=== PATIENT | female | born 1985 | race Caucasian/White ===

== ENCOUNTER 2019-09-09 10:54 | Outpatient (CLI) | payer OTHER ==
--- NOTE | 2019-09-09 11:22 | RAD ---
LUMBAR SPINE TWO VIEWS: HISTORY: Disability exam. FINDINGS: No fracture, subluxation or bony destruction is identified. No significant degenerative changes are s een. An IUD is present. POS: TPC
== END 2019-09-09 10:55 | disposition home or self-care (01) ==
LOC: BICRAD 10:54
PROVIDERS: ATTEND Internal Medicine
DX: Z02.71 Encounter for disability determination (principal); Z97.5 Presence of (intrauterine) contraceptive device
CPT/HCPCS: 72100

== ENCOUNTER 2020-03-10 01:23 | Inpatient (IN) | payer SELFPAY ==
[2020-03-10] MEDS ORDERED: Fentanyl 100 MCG/2 ML VIAL SLOW IVP PRN ×2 (02:52→13:42)
[2020-03-10 03:24] VITALS: BMI 31.4
[2020-03-10] MEDS: cefTRIAXone\\ROCEPHIN 2 GM in Sodium Chloride 0.9% 100 ML IVPB SCH (03:46)
[2020-03-10] MEDS: D5 1/2 NS w/20 mEq KCL 1,000 ML IV SCH ×4 (03:46→23:57)
[2020-03-10] MEDS: metroNIDAZOLE 500 MG in Premix Bag 1 BAG IVPB SCH ×3 (05:03→19:32)
[2020-03-10] MEDS ORDERED: Ondansetron PF 4 MG/2 ML Vial IVP SCH (06:15)
[2020-03-10] MEDS: Saccharomyces boulardii 250 MG CAP PO SCH (08:05)
[2020-03-10 09:39] LABS: #Lymphocytes 1.1 thou/uL (1.20-3.40); #Monocytes 0.4 thou/uL (0.11-0.59); #Neutrophils 6.7 thou/uL (1.40-6.50); %Basophils 0.2 % (0.0-1.0); %Eosinophils 0.3 % (0.0-10.0); %Lymphocytes 13.5 % (21.0-51.0); %Monocytes 4.4 % (0.0-10.0); %Neutrophils 81.6 % (42.0-75.0); Hemoglobin 13.9 g/dL (12.0-16.0); Mean Corpuscular HGB CONC 33.4 g/dL (32.0-36.0); Mean Platelet Volume 10.1 fL (7.4-10.4); Platelet Count 130 thou/uL (130-400); RBC Distribution Width 11.9 % (11.5-14.5); Red Blood Cell (RBC) Count 4.35 mill/uL (4.20-5.40); White Blood Cell (WBC) Count 8.2 thou/uL (4.8-10.8)
[2020-03-10 09:57] LABS: Anion Gap 11 mmol/L (10-20); BUN (Urea Nitrogen) 6 mg/dL (7.0-18.7); Calc. Creatinine Clearance 164 mL/min (70-130); Calcium 8.8 mg/dL (7.8-10.44); Carbon Dioxide 26 mmol/L (22-29); Chloride 106 mmol/L (98-107); Estimated GFR-MDRD Greater than 90; Glucose 98 mg/dL (70-105); Potassium 3.4 mmol/L (3.5-5.1); Sodium 140 mmol/L (136-145)
[2020-03-10] MEDS: traMADol HCl 50 MG TAB PO PRN (13:52)
--- NOTE | 2020-03-10 15:01 | HP ---
REASON FOR ADMISSION: Acute colitis. HISTORY OF PRESENTING ILLNESS: The patient gives history of having abdominal pain and nauseous feeling for the last 1 week or so now. She also developed diarrhea on the hour, which was watery from yesterday. The patient got exhausted and also developed a temperature of 102 degrees with chills and headache and finally made it to [facility] Emergency Room. From there, she was transferred here after a CAT scan shows findings of colitis. The patient states she has history of gastroparesis and for her to have nauseous feeling was common, but not the other symptoms. She has had gastric emptying study done in January of 2019 and was found to have had gastroparesis and was placed on Reglan and Zofran p.r.n. PAST MEDICAL AND SURGICAL HISTORY: History of gastroparesis and has seen Dr. Chawla at [facility]. Last upper endoscopy in 2018. She has had a prior colonoscopy done in 2013. GERD, gastritis, depression, bipolar disorder, PTSD. CURRENT MEDICATIONS: The patient is not taking any medications for the last 2 weeks now. She was supposed to be on, 1. Seroquel. 2. Topiramate. 3. Citalopram. 4. Mirtazapine. 5. Lamotrigine. 6. Gabapentin, all of which she is waiting on a prescription when she sees Barby Galeas on March 31. She is also on lisinopril and sucralfate along with Reglan and Zofran p.r.n. ALLERGIES: TO MORPHINE, LITHIUM, PENICILLIN, MIRALAX, ULTRAM, ZIPRASIDONE. PERSONAL HISTORY: Quit smoking 8 months ago. Does not abuse alcohol or drugs. FAMILY HISTORY: Mother is living, has some disk issues in the lower back. She also has diabetes. Father in his 70s. He had a portion of his stomach removed, had skin cancer, diabetes, and dementia. The power of forensic science technician is her . CODE STATUS: Full. REVIEW OF SYSTEMS: CONSTITUTIONAL: Negative for weight loss or gain, ability to conduct usual activities. SKIN: Negative for rash, itching. EYES: Negative for double vision, pain. ENT/MOUTH: Negative for nose bleeding, neck stiffness, pain, tenderness. CARDIOVASCULAR: Negative for palpitations, dyspnea on exertion, orthopnea. RESPIRATORY: Negative for shortness of breath, wheezing, cough, hemoptysis, fever or night sweats. GASTROINTESTINAL: Negative for poor appetite, abdominal pain, heartburn, nausea, vomiting, constipation, or diarrhea. GENITOURINARY: Negative for urgency, frequency, dysuria, nocturia. MUSCULOSKELETAL: Negative for pain, swelling. NEUROLOGIC/PSYCHIATRIC: Negative for anxiety, depression. ALLERGY/IMMUNOLOGIC: Negative for skin rash, bleeding tendency. PHYSICAL EXAMINATION: GENERAL: The patient is a 34-year-old female who is currently not in any acute distress. VITAL SIGNS: Blood pressure 124/86, temperature 99.8 degrees Fahrenheit, saturating 98% on room air, respiratory rate 16, pulse is 76 per minute. NECK: Supple. No elevated JVD. HEENT: Eyes; extraocular muscles intact. Pupils reacting to light. Oral cavity, mucous membranes are moist. No exudates or congestion. CARDIOVASCULAR: S1 and S2 heard, regular rhythm. RESPIRATORY: Air entry 1+ bilateral. No rales or rhonchi. ABDOMEN: Soft. Bowel sounds heard. No tenderness, rigidity, or guarding. EXTREMITIES: No peripheral edema or calf tenderness. VASCULAR: Peripheral pulses 1+ bilateral. No ischemic ulcerations or gangrene. CENTRAL NERVOUS SYSTEM: No gross focal deficits noted. The patient is alert, awake, oriented well. PSYCHIATRIC: The patient's mood is euthymic. No hallucinations or delusions. LABORATORY AND DIAGNOSTIC DATA: The patient has had a CT of the abdomen and pelvis done with contrast on 03/08/2020, which showed findings of mild hyperenhancement in the ascending colonic mucosa with low-grade colitis, slight interval size decrease in left renal angiomyolipomas with embolization changes. Normal appendix. White count of 13, H and H 15 and 46, platelet count 157 with 89% neutrophils. Potassium 3.2, serum bicarb 21, BUN 10, creatinine 0.7, serum glucose 143. Liver enzymes within normal limits. CRP 1.20. Albumin is 4.8. Liver enzymes are within normal limits. UA is negative for any infection. Urine test is negative. Stool for C difficile is negative. Campylobacter antigen is positive. Shiga toxin is negative. Chest x-ray done shows no acute cardiopulmonary abnormalities. CLINICAL IMPRESSION AND PLAN: The patient will be admitted to medical floor for acute colitis. Her stool is positive for Campylobacter antigen. The patient is on Flagyl and ceftriaxone for now. We will also gently hydrate her with D5 half NS with 20 mEq of potassium at 125 mL per hour. We will obtain gastroenterology consultation with Dr. Aguayo. She will be on clear liquid diet until she is able to tolerate it and we will slowly advance her diet. She is otherwise hemodynamically stable for now. Job ID: [id number]
[2020-03-10] MEDS: Ondansetron ODT 4 MG TAB PO PRN (17:59)
[2020-03-10] MEDS ORDERED: Promethazine HCl 25 MG/ML VIAL IM/IV SCH (19:30)
[2020-03-11] MEDS: cefTRIAXone\\ROCEPHIN 2 GM in Sodium Chloride 0.9% 100 ML IVPB SCH (02:30)
[2020-03-11] MEDS: metroNIDAZOLE 500 MG in Premix Bag 1 BAG IVPB SCH ×2 (03:06→11:10)
[2020-03-11] MEDS: traMADol HCl 50 MG TAB PO PRN ×3 (05:50→23:01)
[2020-03-11 05:55] LABS: #Lymphocytes 1.7 thou/uL (1.20-3.40); #Monocytes 0.4 thou/uL (0.11-0.59); #Neutrophils 2.9 thou/uL (1.40-6.50); %Basophils 0.6 % (0.0-1.0); %Eosinophils 0.4 % (0.0-10.0); %Monocytes 7.6 % (0.0-10.0); %Neutrophils 58.5 % (42.0-75.0); Hemoglobin 13.5 g/dL (12.0-16.0); Mean Corpuscular HGB CONC 33.2 g/dL (32.0-36.0); Mean Corpuscular Volume 96.4 fL (78.0-98.0); Mean Platelet Volume 10.3 fL (7.4-10.4); Platelet Count 128 thou/uL (130-400); Red Blood Cell (RBC) Count 4.21 mill/uL (4.20-5.40)
[2020-03-11 06:03] LABS: Anion Gap 6 mmol/L (10-20); BUN (Urea Nitrogen) 4 mg/dL (7.0-18.7); Calc. Creatinine Clearance 150 mL/min (70-130); Calcium 8.9 mg/dL (7.8-10.44); Carbon Dioxide 31 mmol/L (22-29); Chloride 106 mmol/L (98-107); Estimated GFR-MDRD 82; Glucose 113 mg/dL (70-105); Potassium 3.3 mmol/L (3.5-5.1); Sodium 140 mmol/L (136-145)
[2020-03-11] MEDS: Saccharomyces boulardii 250 MG CAP PO SCH (08:16)
--- NOTE | 2020-03-11 08:59 | CON ---
DATE OF CONSULTATION: 03/10/2020 REASON FOR CONSULTATION: Abdominal pain, nausea, vomiting, diarrhea. HISTORY OF PRESENT ILLNESS: Ms. Regi Falk is a very pleasant 34-year-old female, hospitalized with abdominal pain, diarrhea, and also some fever. The patient is actually feeling better today. As per the patient, she had fever of 102 yesterday and came to the ER, but today her temperature 99.1 to 99.8 degrees Fahrenheit. Her abdominal pain is markedly improved. She has had no nausea, vomiting today. Her diarrhea is actually getting better. She had 3 stools and stools are watery. There is no bleeding in the stool. The patient is actually feeling better today and overall she feels better. The patient appears to have chronic GI symptoms over the years. It appears she has had abdominal cramping, diarrhea over the years and it appears she has IBS. Apparently, she had seen Dr. Scott Ramirez in 2013 and had a colonoscopy, EGD and both were negative. She saw Dr. Ramirez for quite a while and then she saw Dr. Steward at [facility]. He did an EGD ulcer disesae, esophagitis, hiatal hernia, and also gastroparesis. She was placed on Zofran and Reglan subsequently. She has been on Reglan and Zofran off and on. At times Reglan helps her, but at times it does not really help her. The patient has had chronic GI symptoms over the years and appears to be more of IBS diarrhea. The patient has had no hematochezia . The patient has had intermittent abdominal pain, abdominal bloating, belching, flatulence and diarrhea over the years. Her symptoms this time started approximately a week ago, or last . She went to the [facility] on Sunday and had abdominal CAT scan. The CAT scan showed some colitis. She was sent home on some antibiotics. The patient also developed a fever of 102 yesterday with some chills and worsening diarrhea, so she came back to the ER and got admitted to hospital here. The stool studies are pending. The patient had no relevant history. ALLERGIES: MULTIPLE AND INCLUDING ALLANTOIN, BENZOCAINE, BENZALKONIUM CHLORIDE, MORPHINE, LITHIUM, PENICILLIN, MIRALAX, ULTRAM, ETC. SOCIAL HISTORY: She is a chronic smoker. She has smoked for 22 years and she quit smoking last year. She was smoking a packet of cigarettes per day. She seldom drinks alcohol. PAST MEDICAL HISTORY: 1. Obesity. She used to weigh 285 pounds. She lost about nearly 80 pounds over the last 6 or 7 months. 2. Hiatal hernia. 3. Chronic acid reflux, epigastric ulcer, ulcer gastritis. 4. Depression. 5. PTSD. 6. Bipolar disorder. 7. History of peripheral neuropathy and had seen in the past. 8. Gastroparesis. PAST SURGICAL HISTORY: 1. Bilateral carpal tunnel syndrome release. 2. History of angiomyolipoma of the kidneys and has had an embolization done at [facility] in 2019. MENSTRUAL HISTORY: No periods for the last 7 years and she has had a Mirena implant done in the past. MEDICATIONS: 1. Verapamil. 2. Seroquel. 3. Topiramate. 4. Citalopram. 5. Mirtazapine. 6. Lamotrigine. 7. Gabapentin. 8. Reglan. 9. Zofran. FAMILY HISTORY: Mother, diabetes mellitus, hypertension. Father at the 70s and he had skin cancer, diabetes, dementia, and also prostate cancer. He also had his total stomach removed. SOCIAL HISTORY: She is unemployed. 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 She had two children and both children have autism. REVIEW OF SYSTEMS: Ten-point system reviewed. CONSTITUTIONAL: History of weight loss of nearly 100 pounds over the last 7 or 8 months. Subsequently kidney for angiomyolipoma. History of recent fever. No history of any change in exercise tolerance. HEENT: Head, no chronic headache. No syncope. Eyes, no diplopia. No impaired vision. Ears, no hearing loss. Nose, no nosebleed. Throat, no sore throat. At times, she feels her throat is closing, which occurs off and on. LUNGS: No chronic coughing, hemoptysis. CARDIOVASCULAR: No chest pain. No palpitation. No dyspnea, orthopnea, PND. GI: As in history of present illness. : No dysuria, hematuria. MUSCULOSKELETAL: History of peripheral neuropathy and has some poor coordination of the upper extremities. NEUROPSYCHIATRIC: History of depression, bipolar disorder, PTSD. PHYSICAL EXAMINATION: GENERAL: She appears very comfortable, in no acute distress. She is actually feeling better. VITAL SIGNS: Temperature 99.8 degrees Fahrenheit, pulse 77, blood pressure 124/86. HEENT: Conjunctivae are clear. NECK: Supple. CARDIOVASCULAR: First and second heart sounds normal. LUNGS: Clear to auscultation. ABDOMEN: Very benign. Abdomen is mildly tender over the epigastric area. Overall, it is nontender anywhere else. There is no rebound or guarding. Bowel sounds are normal. EXTREMITIES: Reveal no edema. LABORATORY DATA: CBC; WBC 8200, hemoglobin 13.9, hematocrit 41.7, MCV 96, platelet count is 130,000, polymorphs 81, lymphocytes 13, monocytes 4. Chemistry panel, potassium 3.4, otherwise Chem-7 is normal. Calcium 8.8. CLINICAL IMPRESSION: 1. A 34-year-old female with chronic gastrointestinal symptoms over the years. She appears to have what appears to be classical irritable bowel syndrome diarrhea over the years. She had a colonoscopy by Dr. Ramirez in 2013 was negative. She was told to have gastroparesis a year ago by Dr. Steward. She was placed on Reglan and Zofran. [id number] diarrhea, which is most likely infectious in origin. She has no symptoms of inflammatory bowel disease. 2. Obesity. 3. History of gastric ulcer. 4. Hiatal hernia. 5. Chronic acid reflux. 6. 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 7. Depression. 8. Bipolar disorder. 9. Post-traumatic stress disorder. 10. Peripheral neuropathy. RECOMMENDATION: Clear liquid diet. Await stool culture and other studies. If she has no worsening of symptoms, continue regular diet from tomorrow. I do not believe she needs a colonoscopy at the present time, her symptoms are most likely IBS diarrhea on top of infectious diarrhea. Job ID: [id number]
[2020-03-11] MEDS: D5 1/2 NS w/20 mEq KCL 1,000 ML IV SCH ×2 (10:00→12:42)
[2020-03-11] MEDS: Ondansetron ODT 4 MG TAB PO PRN ×2 (11:10→23:02)
--- NOTE | 2020-03-11 12:07 | PDOC.HOSPP ---
- Subjective Encounter Date: 03/11/20 Encounter Time: 08:50 Subjective: abd pain and nausea has resolved is tolerating liq diet ambulating in room, no sob - Objective Vital Signs & Weight: Vital Signs (12 hours) Temp Pulse Resp BP Pulse Ox 03/11/20 08:16 96 03/11/20 07:43 98.6 F 68 17 127/82 96 Weight Admit Weight 212 lb Weight 212 lb 14.4 oz I&O: 03/10/20 03/11/20 03/12/20 06:59 06:59 06:59 Intake Total 400 2730 Output Total 350 Balance 400 2380 Result Diagrams: 03/11/20 05:31 03/11/20 05:31 Hospitalist ROS - Medication Medications: Active Medications Generic Name Dose Route Start Last Admin Trade Name Freq PRN Reason Stop Dose Admin Fentanyl 25 mcg 03/10/20 13:42 03/10/20 18:04 Sublimaze SLOW IVP 25 mcg Q6H PRN Administration Severe Pain (7-10) Potassium Chloride/Dextrose/Sod Cl 1,000 mls @ 125 mls/hr 03/10/20 03:00 10:00 D5 1/2 Ns W/20 Meq Kcl IV 1,000 mls .Q8H HEBER Administration Metronidazole 500 mg/ Device 100 mls @ 100 mls/hr 03/10/20 04:00 03/11/20 11: 10 IVPB 100 mls 0400,1200,2000 HEBER Administration Ondansetron HCl 4 mg 03/10/20 17:56 03/11/20 11:10 Zofran Odt PO 4 mg Q6H PRN Administration Nausea/Vomiting Saccharomyces Boulardii 250 mg 03/10/20 09:00 03/11/20 08:16 Florastor PO 250 mg DAILY HEBER Administration Sodium Chloride 10 ml 03/10/20 09:00 03/11/20 08:16 Flush - Normal Saline IVF Not Given Q12HR HEBER Tramadol HCl 50 mg 03/10/20 13:42 03/11/20 05:50 Ultram PO 50 mg Q6H PRN Administration Mild-Moderate Pain (1-6) - Exam General Appearance: awake alert Eye: PERRL, anicteric sclera ENT: no oropharyngeal lesions, moist mucosa Neck: supple, no JVD Heart: RRR, no murmur Respiratory: no wheezes, no rales Gastrointestinal: soft, non-tender, non-distended, normal bowel sounds, no guarding, no rigidity Extremities: no cyanosis, no edema Neurological: cranial nerve grossly intact, no focal deficits Psychiatric: A&O x 3 Hosp A/P (1) Gastroenteritis/colitis, infectious Code(s): A09 - INFECTIOUS GASTROENTERITIS AND COLITIS, UNSPECIFIED Status: Acute (2) IBS (irritable bowel syndrome) Status: Chronic Qualifiers: Irritable bowel syndrome type: with diarrhea Qualified Code(s): K58.0 - Irritable bowel syndrome with diarrhea (3) Obesity (BMI 30.0-34.9) Code(s): E66.9 - OBESITY, UNSPECIFIED Status: Chronic (4) Bipolar disorder Code(s): F31.9 - BIPOLAR DISORDER, UNSPECIFIED Status: Chronic Qualifiers: Active/Remission status: in full remission (5) Depression Code(s): F32.9 - MAJOR DEPRESSIVE DISORDER, SINGLE EPISODE, UNSPECIFIED Status : Chronic Qualifiers: Depression Type: major depressive disorder (6) Gastroparesis Code(s): K31.84 - GASTROPARESIS Status: Chronic - Plan campylobacter jejuni Ag in stool is +ve, unclear if its the source of current colitis, will give 3 doses of levaquin hemostable is allergic to ?potassium, encourage oral potassium rich food with less fiber ( may ask dietitician to help if needed) dc plan in am advance to oral solid diet appreciate help from
[2020-03-11] MEDS ORDERED: metroNIDAZOLE 500 MG TAB PO SCH (15:00)
--- NOTE | 2020-03-11 15:17 | PRG ---
DATE OF SERVICE: 03/11/2020 SUBJECTIVE: A 34-year-old , hospitalized with abdominal pain, fever, nausea, vomiting, and diarrhea. Symptoms markedly improved. Feeling a whole lot better today. She has abdominal pain, but does have nausea off and on. The stool frequency markedly came down. She is acting a whole lot better, actually she would like to go home today. The stool studies are negative for C difficile toxin and antigen. However, she has positive Campylobacter antigen. PHYSICAL EXAMINATION: GENERAL: She appears very comfortable. VITAL SIGNS: She is afebrile. Her vital signs are stable. HEENT: Conjunctivae are clear. CARDIOVASCULAR: First and second heart sounds heard. LUNGS: Clear to auscultation. ABDOMEN: Soft. . IMPRESSION: Acute diarrheal illness . She also has chronic diarrhea from IBS. From GI standpoint, she can be discharged to home on Zithromax. Can also try the regular diet today to make sure she can hold food down. Job ID: [id number]
[2020-03-11] MEDS: metroNIDAZOLE 500 MG TAB PO SCH (20:37)
[2020-03-12] MEDS: D5 1/2 NS w/20 mEq KCL 1,000 ML IV SCH (03:38)
[2020-03-12] MEDS: traMADol HCl 50 MG TAB PO PRN (06:07)
[2020-03-12] MEDS: Ondansetron ODT 4 MG TAB PO PRN (06:07)
[2020-03-12 07:34] VITALS: BP 135/96; TEMP 98.1
[2020-03-12] MEDS: metroNIDAZOLE 500 MG TAB PO SCH (09:50)
[2020-03-12] MEDS: Saccharomyces boulardii 250 MG CAP PO SCH (09:50)
--- NOTE | 2020-03-12 13:22 | DIS ---
DATE OF ADMISSION: 03/10/2020 DATE OF DISCHARGE: 03/12/2020 DISCHARGE DISPOSITION: To home. PRIMARY DISCHARGE DIAGNOSES: 1. Colitis, likely secondary to Campylobacter jejuni, resolved. 2. History of irritable bowel syndrome. 3. Obesity. 4. Bipolar disorder. 5. Depression. 6. History of gastroparesis. PROCEDURES DONE DURING HOSPITALIZATION: Stool for C diff was negative. Blood cultures x2 negative. Influenza A and B antigens were negative. Campylobacter antigen was positive on the stool assay. Stool was negative for shiga toxin 1 and 2. Had a white count of 13 on the day of admission with discharge numbers of 5, H and H 13 and 40, platelet count 128, with 58% neutrophils. BUN 4, creatinine 0.6, serum bicarb is 31. CRP 1.20. Albumin 4.8. Urine test was negative. DISCHARGE MEDICATIONS: 1. Albuterol nebulizer q.6 hourly p.r.n. 2. Norvasc 5 mg p.o. daily. 3. Celexa 40 mg p.o. at bedtime. 4. Gabapentin 300 mg p.o. 3 times daily. 5. Lamotrigine 25 mg p.o. at bedtime. 6. Mirtazapine 7.5 mg p.o. at bedtime. 7. Omeprazole 40 mg twice daily. 8. Zofran p.r.n. 9. Levaquin 750 mg p.o. one more dose tomorrow. ALLERGIES: THE PATIENT IS ALLERGIC TO MULTIPLE AGENTS INCLUDING ORAJEL, KETORALAC, LITHIUM, MORPHINE, NSAIDS, MIRALAX, POTASSIUM, SODIUM BICARBONATE, ZINC, AND ADHESIVES. DISCHARGE PLAN: The patient to follow up with her primary care physician, Dr. Jori Rios, in 1 week. BRIEF COURSE DURING HOSPITALIZATION: The patient initially came in with complaints of abdominal pain with diarrhea and nausea. The patient has had a CAT scan done, which showed findings of colitis. She was essentially placed on full liquid diet and stool studies were done along with broad-spectrum IV antibiotics. The patient has responded to above measures. Her stool came back positive for Campylobacter antigen. She was slowly weaned into solid food at the time of discharge. Her diarrhea has resolved. She is tolerating oral solid diet. The patient has known history of irritable bowel syndrome. She is ambulating in the hallway. She will be shortly discharged home. Please note, I have seen and examined the patient on the day of discharge. Job ID: [id number]
== END 2020-03-12 10:43 | disposition home or self-care (01) | DRG 373 ==
LOC: T4-B 02:49
PROVIDERS: ADMIT Internal Medicine; ATTEND Internal Medicine
DX: A04.5 Campylobacter enteritis (principal); K21.9 Gastro-esophageal reflux disease without esophagitis; F31.9 Bipolar disorder, unspecified; F43.10 Post-traumatic stress disorder, unspecified; G62.9 Polyneuropathy, unspecified; K44.9 Diaphragmatic hernia without obstruction or gangrene; E66.9 Obesity, unspecified; Z88.0 Allergy status to penicillin; Z88.6 Allergy status to analgesic agent; Z88.8 Allergy status to other drugs, medicaments and biological substances; Z87.891 Personal history of nicotine dependence; Z68.31 Body mass index [BMI] 31.0-31.9, adult; Z87.19 Personal history of other diseases of the digestive system
CPT/HCPCS: 36415; 80048; 85025; 87045; 87046; 87324; 87427; 87449; J0696; J2405; J2550; J3010; J3480; J3490; Q0162

== ENCOUNTER 2021-11-15 15:25 | Emergency (ER) | payer MEDICARE ==
[2021-11-15 15:56] LABS: #Eosinphils 0.1 thou/uL (0.0-0.7); #Lymphocytes 1.6 thou/uL (1.20-3.40); #Monocytes 0.2 thou/uL (0.11-0.59); #Neutrophils 3.9 thou/uL (1.40-6.50); %Basophils 0.4 % (0.0-1.0); %Eosinophils 2.1 % (0.0-10.0); %Monocytes 4.1 % (0.0-10.0); %Neutrophils 66.5 % (42.0-75.0); Hemoglobin 13.4 g/dL (12.0-16.0); Mean Corpuscular HGB CONC 35.4 g/dL (32.0-36.0); Mean Corpuscular Hemoglobin 33.8 pg (27.0-31.0); Mean Corpuscular Volume 95.3 fL (78.0-98.0); Mean Platelet Volume 8.3 fL (7.4-10.4); Platelet Count 198 thou/uL (130-400); RBC Distribution Width 11.1 % (11.5-14.5); Red Blood Cell (RBC) Count 3.98 mill/uL (4.20-5.40); White Blood Cell (WBC) Count 5.9 thou/uL (4.8-10.8)
[2021-11-15 16:20] LABS: ALT (SGPT) 11 U/L (8-55); AST (SGOT) 15 U/L (5-34); Albumin 4.1 g/dL (3.5-5.0); Alkaline Phosphatase 64 U/L (40-110); Anion Gap 12 mmol/L (10-20); BUN (Urea Nitrogen) 15 mg/dL (7.0-18.7); Bilirubin, Total 0.4 mg/dL (0.2-1.2); Calc. Creatinine Clearance 0 mL/min (70-130); Calcium 8.9 mg/dL (7.8-10.44); Carbon Dioxide 27 mmol/L (22-29); Chloride 103 mmol/L (98-107); Globulin 2.4 g/dL (2.4-3.5); Glucose 120 mg/dL (70-105); Potassium 3.8 mmol/L (3.5-5.1); Protein, Total 6.5 g/dL (6.0-8.3); Sodium 138 mmol/L (136-145)
[2021-11-15 19:26] LABS: BHCG - Serum Negative (NEGATIVE); Pregs Control Background? CLEAR/WHITE (CLR/WHITE); Pregs Control Bar Appear? YES (CONTROL BAR)
== END 2021-11-15 20:46 | disposition home or self-care (01) ==
LOC: ERS 15:25
DX: U07.1 COVID-19 (principal); M79.601 Pain in right arm; I10 Essential (primary) hypertension; K21.9 Gastro-esophageal reflux disease without esophagitis; Z87.891 Personal history of nicotine dependence
CPT/HCPCS: 36415; 71045; 71275; 80053; 83880; 84484; 84703; 85025; 85379; 93005

== ENCOUNTER 2024-08-24 10:36 | Emergency (ER) | payer MEDICARE ==
[~2024-08-24 10:36] MED LIST: Iopamidol-370 76% 500 ML MDV (1 ML CHARGE) ONE
[2024-08-24 11:27] LABS: Bacteria/HPF None Seen HPF (None Seen); Bilirubin Negative (Negative); Blood, Urine Negative (Negative); CAUTI Indications for Culture Pelvic or flank pain; Clarity Clear (Clear); Glucose, Urine (Dipstick) Normal (Negative); Ketone, Urine Negative (Negative); Leukocyte Negative Leu/uL (Negative); Nitrite Negative (Negative); Pregnancy Test - Urine (BHCG) Negative (Negative); Pregu Control Background? CLEAR/WHITE (CLR/WHITE); Pregu Control Bar Appear? YES (CONTROL BAR); Protein, Urine (Dipstick) Negative (Neg-Trace); RBC/HPF 0-3 HPF (0-3); Specific Gravity 1.001 (1.002-1.036); Specific Gravity, Urine 1.001 (1.002-1.036); Squamous Epithelial 0-3 HPF (0-3); Urobilinogen Normal mg/dL (Less than 2); WBC/HPF None Seen HPF (0-3); pH, Urine 7.5 (5.0-9.0)
[2024-08-24 11:29] LABS: Urine Culture Reflex No No
[2024-08-24] MEDS ORDERED: fentaNYL 50 mcg/mL 1 mL Vial ONE (12:01)
[2024-08-24] MEDS ORDERED: Ondansetron PF 4 MG/2 ML Vial ONE (12:01)
[2024-08-24 12:03] LABS: #Basophils 0.05 10x3/uL (0.0-0.2); %Basophils 0.6 % (0.0-1.0); %Eosinophils 1.5 % (0.0-10.0); %Lymphocytes 22.8 % (21.0-51.0); %Monocytes 5.6 % (0.0-10.0); %Neutrophils 69.1 % (42.0-75.0); Hematocrit 44.7 % (36.0-47.0); Hemoglobin 14.9 g/dL (12.0-16.0); Mean Corpuscular HGB CONC 33.3 g/dL (32.0-36.0); Mean Corpuscular Hemoglobin 31.2 pg (27.0-31.0); Mean Corpuscular Volume 93.7 fL (78.0-98.0); Mean Platelet Volume 11.4 fL (7.4-10.4); Platelet Count 219 10x3/uL (130-400); Red Blood Cell (RBC) Count 4.77 mill/uL (4.20-5.40)
[2024-08-24 12:18] LABS: BHCG - Serum Negative (NEGATIVE); Pregs Control Background? CLEAR/WHITE (CLR/WHITE); Pregs Control Bar Appear? YES (CONTROL BAR)
[2024-08-24 12:22] LABS: ALT (SGPT) 12 U/L (8-55); AST (SGOT) 13 U/L (5-34); Albumin 4.7 g/dL (3.5-5.0); Alkaline Phosphatase 63 U/L (40-110); Anion Gap 12 mmol/L (10-20); BUN (Urea Nitrogen) 9 mg/dL (7.0-18.7); Bilirubin, Total 0.5 mg/dL (0.2-1.2); Calc. Creatinine Clearance 0 mL/min (70-130); Calcium 10.3 mg/dL (7.8-10.44); Carbon Dioxide 26 mmol/L (22-29); Chloride 104 mmol/L (98-107); Estimated GFR 90; Globulin 3.1 g/dL (2.4-3.5); Glucose 105 mg/dL (70-105); Lipase 30 U/L (8-78); Potassium 3.8 mmol/L (3.5-5.1); Protein, Total 7.8 g/dL (6.0-8.3); Sodium 138 mmol/L (136-145)
[2024-08-24 12:27] LABS: Troponin I Less than 0.010 ng/mL (< 0.028)
== END 2024-08-24 14:01 | disposition home or self-care (01) ==
LOC: ERS 10:36
DX: D17.9 Benign lipomatous neoplasm, unspecified (principal); Z55.9 Problems related to education and literacy, unspecified; Z87.891 Personal history of nicotine dependence
CPT/HCPCS: 74177; 80053; 81001; 81025; 83605; 83690; 84484; 84703; 85025; 93005; 96374; 96375; 99284; J2405; J3010; Q9967; 36415

== ENCOUNTER 2024-12-25 13:11 | Outpatient (CLI) | payer OTHER | END 2024-12-25 13:12 | disposition home or self-care (01) | LOC: BICRAD 13:11 | PROVIDERS: ATTEND Nurse Practitioner Family | DX: M54.2 Cervicalgia (principal); M47.812 Spondylosis without myelopathy or radiculopathy, cervical region | CPT/HCPCS: 72040 ==

== ENCOUNTER 2025-06-15 14:29 | Emergency (ER) | payer OTHER ==
[2025-06-15] MEDS ORDERED: Dexamethasone 10 MG/ML VIAL ONE (16:50)
[2025-06-15] MEDS ORDERED: HYDROcodone/Acetaminophen 10/325 mg Tablet ONE (16:59)
== END 2025-06-15 17:46 | disposition home or self-care (01) ==
LOC: ERS 14:29
DX: M54.12 Radiculopathy, cervical region (principal); I10 Essential (primary) hypertension; Z87.891 Personal history of nicotine dependence; Z79.899 Other long term (current) drug therapy
CPT/HCPCS: 96372; 99283; J1100; J2060; J3010